=== PATIENT | female | born 1965 | race Caucasian/White ===

== ENCOUNTER 2022-12-13 16:37 | Emergency (ER) | payer OTHER ==
[2022-12-13] MEDS ORDERED: Prochlorperazine 10 MG/2 ML SDV IVPUSH ONE (17:10)
[2022-12-13] MEDS ORDERED: Sodium Chloride 0.9% 1,000 ML IV SCH (17:15)
[2022-12-13 17:29] LABS: HEMATOCRIT 38.7 % (34.3-46.0); HEMOGLOBIN 13.4 g/dL (11.2-15.5); MEAN CORPUSCULAR HEMOGLOBIN 33.1 pg (31.6-35.5); MEAN CORPUSCULAR HGB CONC 34.6 g/dL (31.6-35.5); MEAN CORPUSCULAR VOLUME 95.6 fL (81.4-99.0); RED BLOOD CELL COUNT 4.05 M/uL (3.77-5.24); WHITE BLOOD CELL COUNT,WBC 7.7 K/uL (3.2-11.0)
[2022-12-13 18:11] LABS: CALCIUM 8.9 mg/dL (8.5-10.1); CREATININE 0.6 mg/dL (0.6-1.0); EST CRCL DRUG DOSING (CG) 85.35 mL/min; POTASSIUM,K 3.5 mmol/L (3.6-5.2)
[2022-12-13 18:13] LABS: ANION GAP 15.5 mmol/L (5.0-14.0)
[2022-12-13] MEDS ORDERED: Metoprolol Succinate 25 MG Tab.ER PO ONE (18:33)
== END 2022-12-13 19:14 | disposition home or self-care (01) ==
LOC: JP.ED 16:37
DX: S06.0X1A Concussion with loss of consciousness of 30 minutes or less, initial encounter (principal); I10 Essential (primary) hypertension; Z87.891 Personal history of nicotine dependence; Z88.5 Allergy status to narcotic agent; Z79.82 Long term (current) use of aspirin; W01.198A Fall on same level from slipping, tripping and stumbling with subsequent striking against other object, initial encounter
CPT/HCPCS: 36415; 70450; 80048; 83605; 85027; 96361; 96365; 99284; A9270; J0780; J7030